=== PATIENT | female | born 1960 | race Caucasian/White ===

== ENCOUNTER 2018-03-24 08:47 | Emergency (ER) | payer MEDICARE ==
[~2018-03-24] VITALS: Ht 157.5 cm; Wt 70.0 kg
[~2018-03-24 08:47] MED LIST: AUGMENTIN500TAB PO; DIAZEPAM2 M1 PO; FLEXERIL OR; LORTAB5 OR; MOTRIN800 MG PO; NO HOME MEDICATIONS; TRAMADOL HCL50 MG OR
[2018-03-24] MEDS ORDERED: AUGMENTIN875TAB PO (09:08)
[2018-03-24 10:51] VITALS: BP 148/98
== END 2018-03-24 10:51 | disposition home or self-care (01) ==
LOC: ED 08:47
PROC: 0HQDXZZ Repair Right Lower Arm Skin, External Approach (ICD-10-PCS; principal; 2018-03-24)
DX: S51.851A Open bite of right forearm, initial encounter (principal); F17.210 Nicotine dependence, cigarettes, uncomplicated; W54.0XXA Bitten by dog, initial encounter

== ENCOUNTER 2019-04-24 | Emergency (ER) | payer MEDICARE ==
[~2019-04-24] MED LIST changes: +AUGMENTIN875TAB PO
[2019-04-24] MEDS ORDERED: KEFLEX500 MG PO (21:59)
== END 2019-04-24 22:14 | disposition home or self-care (01) ==
PROC: 0JQ10ZZ Repair Face Subcutaneous Tissue and Fascia, Open Approach (ICD-10-PCS; principal; 2019-04-24)
DX: S01.81XA Laceration without foreign body of other part of head, initial encounter (principal); F17.200 Nicotine dependence, unspecified, uncomplicated; W01.198A Fall on same level from slipping, tripping and stumbling with subsequent striking against other object, initial encounter

== ENCOUNTER 2024-04-11 09:59 | Emergency (ER) | payer MEDICARE ==
[2024-04-11] VITALS (148 sets, daily range): BP systolic 36–216; BP diastolic 17–150
[~2024-04-11] VITALS: Ht 157.5 cm; Wt 64.7 kg
[~2024-04-11 09:59] MED LIST changes: +KEFLEX500 MG PO
[2024-04-11] MEDS ORDERED: AZITHROMYCIN 500 MG in SODIUM CHLORIDE 0.9% 500 ML IV ONE (12:40)
[2024-04-11] MEDS ORDERED: cefTRIAXone SODIUM 2 GM in SODIUM CHLORIDE 0.9% 100 ML IV ONE (12:40)
[2024-04-11] MEDS ORDERED: SODIUM CHLORIDE 0.9% 1,000 ML IV ONE ×2 (12:40→18:30)
[2024-04-11] MEDS ORDERED: TOPROL XL25 MG PO (13:08)
[2024-04-11] MEDS ORDERED: ROSUVASTATIN CA20 MG (13:09)
[2024-04-11] MEDS ORDERED: LOSARTAN POTASS25 MG PO (13:09)
[2024-04-11] MEDS ORDERED: ANASTROZOLE1 MG PO (13:10)
[2024-04-11] MEDS ORDERED: ASPIRINCHW 81MG PO (13:11)
[2024-04-11 13:26] LABS: BASO% 0.2 % (0-3); HEMATOCRIT 35.3 % (37.0-47.0); HEMOGLOBIN 11.9 g/dl (12.0-16.0); IMMATURE GRANULOCYTES 0.3 % (0.0-5.0); LYMPH% 3.4 % (15-41); MEAN CELL VOLUME 94.6 fL CALC (80.0-100.0); MEAN CORPUSCULAR HGB 31.9 pG CALC (26.0-32.0); MEAN CORPUSCULAR HGB CONC 33.7 g/dL CAL (32.0-36.0); MONO% 6.5 % (2-13); NEUT# 8.32 thou/uL (2.00-7.15); NEUT% 88.6 % (42-76); RED BLOOD COUNT 3.73 mill/uL (4.20-5.60); RED CELL DISTRI WIDTH 12.7 % (11.5-15.5)
[2024-04-11 13:52] LABS: ALBUMIN 4.4 g/dL (3.2-5.0); BILIRUBIN, TOTAL 0.6 mg/dL (0.02-1.3); CREATININE 0.7 mg/dL (0.5-1.0); TOTAL PROTEIN 7.1 g/dL (6.3-8.2)
[2024-04-11] MEDS ORDERED: IPRATROPIUM-Albuterol 0.5MG-2.5MG/3 ML NEB ONE (16:10)
[2024-04-11] MEDS ORDERED: ROCURONIUM BROMIDE 10 MG/ML 5ML VIAL IV ONE ×2 (16:25→18:30)
[2024-04-11] MEDS ORDERED: PROPOFOL 100 ML IV PRN (16:25)
[2024-04-11] MEDS ORDERED: FUROSEMIDE 40 MG/4 ML SDV IV ONE (16:25)
[2024-04-11] MEDS ORDERED: ETOMIDATE 20 MG/10 ML SDV IV ONE ×2 (16:25→18:55)
[2024-04-11] MEDS ORDERED: methylPREDNISolone SODIUM SUCC 125 MG/2 ML SDV IV ONE (17:10)
[2024-04-11] MEDS ORDERED: LORAZEPAM 2 MG/ML IV ONE (17:50)
[2024-04-11] MEDS ORDERED: NOREPINEPHRINE BITARTRATE 4 MG/VIAL SDV ONE (18:26)
[2024-04-11] MEDS ORDERED: SODIUM CHLORIDE 0.9% 250 ML IV ONE (18:30)
[2024-04-11] MEDS ORDERED: NOREPINEPHRINE BITARTRATE 4 MG in DEXTROSE 5% 250 ML IV PRN (18:30)
[2024-04-11] MEDS ORDERED: SODIUM CHLORIDE 0.9% 250 ML IV PRN (18:30)
[2024-04-11] MEDS ORDERED: PHENYLEPHRINE HCL 10 MG/ML VIAL ONE (18:31)
[2024-04-11] MEDS ORDERED: DEXTROSE 5% 250 ML IV ONE (18:32)
[2024-04-11] MEDS ORDERED: SODIUM CHLORIDE 0.9% 100 ML IV ONE (18:35)
[2024-04-11] MEDS ORDERED: PHENYLEPHRINE HCL 10 MG in SODIUM CHLORIDE 0.9% 250 ML IV ONE (18:35)
[2024-04-11] MEDS ORDERED: OSELTAMIVIR PHOSPHATE 75 MG/TAB CAP PO ONE (18:50)
[2024-04-11] MEDS ORDERED: PROPOFOL 100 ML IV ONE (21:39)
== END 2024-04-11 22:10 | disposition short-term general hospital (02) ==
LOC: ED 09:59 → ED-I 14:23 → ED 22:10
PROVIDERS: Family Medicine
PROC: 05HM33Z Insertion of Infusion Device into Right Internal Jugular Vein, Percutaneous Approach (ICD-10-PCS; principal; 2024-04-11)
PROC: 0BH17EZ Insertion of Endotracheal Airway into Trachea, Via Natural or Artificial Opening (ICD-10-PCS; 2024-04-11)
PROC: 5A1935Z Respiratory Ventilation, Less than 24 Consecutive Hours (ICD-10-PCS; 2024-04-11)
PROC: 0B21XEZ Change Endotracheal Airway in Trachea, External Approach (ICD-10-PCS; 2024-04-11)
PROC: 0T9B70Z Drainage of Bladder with Drainage Device, Via Natural or Artificial Opening (ICD-10-PCS; 2024-04-11)
DX: J11.00 Influenza due to unidentified influenza virus with unspecified type of pneumonia (principal); J96.00 Acute respiratory failure, unspecified whether with hypoxia or hypercapnia; I10 Essential (primary) hypertension; E11.9 Type 2 diabetes mellitus without complications; F41.9 Anxiety disorder, unspecified; F17.200 Nicotine dependence, unspecified, uncomplicated; Z95.828 Presence of other vascular implants and grafts; Z86.73 Personal history of transient ischemic attack (TIA), and cerebral infarction without residual deficits; Z20.822 Contact with and (suspected) exposure to COVID-19
CPT/HCPCS: J0456; J0696; J1940; J2060; J2704; Q9967